=== PATIENT | female | born 1975 | race Caucasian/White ===

== ENCOUNTER 2024-09-19 07:51 | Day surgery (SDC) | payer MEDICARE, MEDICAID ==
[~2024-09-19 07:51] MED LIST: Sodium Chloride 0.9% 10 ML Syringe FLUSH PRN; Sodium Chloride 0.9% 10 ML Syringe FLUSH SCH
[2024-09-19] MEDS: Lactated Ringers 1,000 ML IV SCH (08:20)
[2024-09-19] MEDS ORDERED: Ketamine 200 MG/20 ML MDV ONE (08:37)
[2024-09-19] MEDS ORDERED: propofoL 500 MG/50 ML 50 ML ONE (08:37)
[2024-09-19] MEDS ORDERED: Lidocaine 1% 2 ML ONE ×2 (08:41→08:42)
[2024-09-19 11:12] VITALS: BP 132/80; PULSE 78
== END 2024-09-19 10:40 | disposition home or self-care (01) ==
LOC: JD.SDS 07:51
PROVIDERS: ATTEND Surgery
DX: Z12.11 Encounter for screening for malignant neoplasm of colon (principal); R19.5 Other fecal abnormalities; D12.3 Benign neoplasm of transverse colon; D12.8 Benign neoplasm of rectum; K31.7 Polyp of stomach and duodenum; K31.89 Other diseases of stomach and duodenum; K64.4 Residual hemorrhoidal skin tags; I85.00 Esophageal varices without bleeding; K21.00 Gastro-esophageal reflux disease with esophagitis, without bleeding; J45.909 Unspecified asthma, uncomplicated; E11.9 Type 2 diabetes mellitus without complications; E78.2 Mixed hyperlipidemia; F33.1 Major depressive disorder, recurrent, moderate; E66.01 Morbid (severe) obesity due to excess calories; Z79.84 Long term (current) use of oral hypoglycemic drugs; Z79.899 Other long term (current) drug therapy; Z88.0 Allergy status to penicillin; Z91.010 Allergy to peanuts; Z91.013 Allergy to seafood
CPT/HCPCS: 43239; 45380; 82947; 88305; J2003; J2704; J3490; J7120; 00813